=== PATIENT | male | born 1950 | race Caucasian/White ===

== ENCOUNTER → 2024-05-29 07:30 | Outpatient (REF) | payer MEDICARE, OTHER, SELFPAY ==
[2024-05-29 10:08] LABS: % Basophils 0.8 % (0-2); % Immature Granulocytes 1.2 % (0-0.5); % Lymphocytes 31.4 % (20.5-51.1); % Monocytes 8.6 % (1.7-9.3); Absolute Basophils 0.1 10^3/uL (0-0.2); Absolute Eosinophils 0.2 10^3/uL (0-0.7); Absolute Immature Granulocytes 0.1 10^3/uL (0-0.05); Absolute Lymphocytes 1.9 10^3/uL (1.2-3.4); Absolute Monocytes 0.5 10^3/uL (0.1-0.6); Absolute Neutrophils 3.3 10^3/uL (1.4-6.5); Hemoglobin 13.7 g/dL (13.0-18.0); Mean Corp Hgb Conc. 34.3 g/dL (33.0-37.0); Mean Corpuscular Hgb 30.9 pg (27.0-31.0); Mean Corpuscular Volume 90.3 fL (80.0-94.0); Nucleated Red Blood Cells % 0 % (-); Platelet Count 144 10^3/uL (130-400); Red Blood Cell Count 4.43 10^6/uL (4.70-6.10); Red Cell Dist. Width 13.2 % (11.5-14.5)
[2024-05-29 10:17] LABS: INR 1.04; PT 13.9 Sec (11.4-14.6)
[2024-05-29 11:21] LABS: ALT (SGPT) 44 U/L (0-50); AST (SGOT) 46 U/L (17-59); Albumin 5.4 g/dl (3.5-5.0); Alkaline Phosphatase 66 U/L (38-126); Blood Urea Nitrogen 34 mg/dl (9-20); Calcium 9.9 mg/dl (8.4-10.2); Carbon Dioxide 28 mmol/L (22-30); Chloride 100 mmol/L (98-107); Glucose 95 mg/dl (70-99); Potassium 4.1 mmol/L (3.5-5.1); Sodium 140 mmol/L (135-145); Total Bilirubin 1.3 mg/dl (0.2-1.3); Total Protein 8.2 g/dl (6.3-8.2); eGFR > 60.00
[2024-05-30 21:49] LABS: AFP Male/Tumor Marker 3 ng/mL (0-9)
== END ==
LOC: HWRAD 07:30
PROVIDERS: ATTENDING PHYSICIAN Nurse Practitioner Family; FAMILY PHYSICIAN Family Medicine
DX: K74.69 Other cirrhosis of liver (principal)
CPT/HCPCS: 36415; 76700; 80053; 82105; 85025; 85610

== ENCOUNTER → 2024-12-21 10:54 | Outpatient (REF) | payer MEDICARE, OTHER, SELFPAY | LOC: RAD 10:54 | PROVIDERS: ATTENDING PHYSICIAN Internal Medicine Gastroenterology; FAMILY PHYSICIAN Family Medicine | DX: K74.60 Unspecified cirrhosis of liver (principal); E78.2 Mixed hyperlipidemia | CPT/HCPCS: 76700 ==